=== PATIENT | male | born 1995 | race Caucasian/White ===

== ENCOUNTER → 2025-03-09 | Outpatient (CLI) | payer MEDICAID ==
[2025-03-09 18:51] LABS: BASO % 0.5 % (0.0-1.0); EOS # 0.1 10^3/uL (0.0-0.5); EOS % 2.2 % (0.0-3.0); HEMATOCRIT 44.8 % (42.0-52.0); HEMOGLOBIN 14.7 g/dl (13.5-17.5); LYMPH # 1.9 10^3/uL (1.5-5.0); LYMPH % 31.2 % (24.0-44.0); MEAN CORPUSCULAR HEMOGLOBIN 28.7 pg (27.0-33.0); MEAN CORPUSCULAR HGB CONC 32.8 g/dl (32.0-36.5); MEAN CORPUSCULAR VOLUME 87.5 fl (80.0-96.0); MONO # 0.5 10^3/uL (0.0-0.8); MONO % 8.3 % (2.0-8.0); NEUTROPHILS # 3.5 10^3/uL (1.5-8.5); NEUTROPHILS % 57.5 % (36.0-66.0); PLATELET COUNT, AUTOMATED 211 10^3/uL (150-450); RED BLOOD COUNT 5.12 10^6/uL (4.30-6.10)
[2025-03-09 19:08] LABS: ALBUMIN 4.1 G/DL (3.2-5.2); ALKALINE PHOSPHATASE 85 U/L (40-129); ALT/SGPT 37 U/L (7.0-40); AST/SGOT 38 U/L (<34); BILIRUBIN,TOTAL 0.3 MG/DL (0.3-1.2); BLOOD UREA NITROGEN 17 MG/DL (9-23); CALCIUM LEVEL 8.9 MG/DL (8.5-10.1); CARBON DIOXIDE LEVEL 29 MMOL/L (20-31); CHLORIDE LEVEL 104 MMOL/L (98-107); CREATININE FOR GFR 0.88 MG/DL (0.70-1.30); GLOMERULAR FILTRATION RATE > 90.0 (>60); GLUCOSE, FASTING 86 MG/DL (60-100); POTASSIUM SERUM 4.3 MMOL/L (3.5-5.1); SODIUM LEVEL 140 MMOL/L (136-145)
[2025-03-09 19:20] LABS: HEPATITIS B SURFACE ANTIGEN NEGATIVE (NEGATIVE)
[2025-03-09 19:41] LABS: HEPATITIS B CORE ANTIBODY IGM NEGATIVE (NEGATIVE)
[2025-03-09 19:51] LABS: HEPATITIS C VIRUS ABY INDEX > 11.00 INDEX (<0.8)
[2025-03-13 00:38] LABS: HCV RNA QUANTITATION <15 NOT DETECTED IU/mL (NOT DETECTED); HCV RNA log10 <1.18 NOT DETECTED Log IU/mL (NOT DETECTED)
== END ==
LOC: M WUC 12:44
DX: Z00.8 Encounter for other general examination (principal)

== ENCOUNTER 2025-06-13 11:50 | Inpatient (IN) | payer MEDICAID, OTHER ==
[~2025-06-13] VITALS: Ht 195.6 cm; Wt 114.5 kg
[2025-06-13] MEDS ORDERED: MM S100C PO (12:06)
[2025-06-13] MEDS ORDERED: PYRI25TA2 PO (12:06)
[2025-06-13] MEDS ORDERED: IBUP200T46 PO (12:06)
[2025-06-13] MEDS ORDERED: MIRT1TAB16 PO (12:06)
[2025-06-13] MEDS ORDERED: CETI5SOL3 PO (12:06)
[2025-06-13] MEDS ORDERED: GABA-284 PO (12:06)
[2025-06-13] MEDS ORDERED: APAP325T4 PO (12:06)
[2025-06-13] MEDS ORDERED: SENN8.6T28 PO (12:06)
[2025-06-13] MEDS ORDERED: NICO21DI37 TOP (12:06)
[2025-06-13] MEDS ORDERED: BANO25TA PO (12:06)
[2025-06-13] MEDS ORDERED: ONDA-282 PO (12:06)
[2025-06-13] MEDS ORDERED: NICO-257 PO (12:06)
[2025-06-13] MEDS ORDERED: LAMO200T3 PO (12:06)
[2025-06-13] MEDS ORDERED: HYDR-3363 PO (12:06)
[2025-06-13] MEDS ORDERED: METH10CO3 PO (12:07)
[2025-06-13 13:01] LABS: PLATELET COUNT, AUTOMATED 185 10^3/uL (150-450)
[2025-06-13 13:22] LABS: AMPHETAMINES LEVEL URINE NEGATIVE (NEGATIVE); BARBITURATES URINE NEGATIVE (NEGATIVE); BENZODIAZEPINES URINE NEGATIVE (NEGATIVE); CANNABINOIDS URINE NEGATIVE (NEGATIVE); COCAINE METABOLITE URINE NEGATIVE (NEGATIVE); METHADONE URINE POSITIVE (NEGATIVE); OPIATES URINE NEGATIVE (NEGATIVE); PHENCYCLIDINE URINE NEGATIVE (NEGATIVE)
[2025-06-13 13:24] LABS: ETHYL ALCOHOL (ETHANOL) < 0.003 % (0.000-0.010)
[2025-06-13 13:26] LABS: ALT/SGPT 53 U/L (7.0-40); AST/SGOT 52 U/L (<34); CALCIUM LEVEL 9.2 MG/DL (8.5-10.1); CARBON DIOXIDE LEVEL 28 MMOL/L (20-31); CHLORIDE LEVEL 104 MMOL/L (98-107); CREATININE FOR GFR 0.86 MG/DL (0.70-1.30); GLOMERULAR FILTRATION RATE > 90.0 (>60); POTASSIUM SERUM 4.5 MMOL/L (3.5-5.1); SALICYLATE LEVEL < 3.0 MG/DL (<30); SODIUM LEVEL 142 MMOL/L (136-145)
[2025-06-13] MEDS ORDERED: ACETAMINOPHEN 325 MG TAB PO PRN (14:25)
[2025-06-13] MEDS ORDERED: MAALOX 30 ML SUSP *UDC PO PRN (14:25)
[2025-06-13] MEDS ORDERED: OLANZapine 5 MG TAB PO PRN (14:25)
[2025-06-13] MEDS ORDERED: MOM 30 ML SUSPENSION UDC PO PRN (14:25)
[2025-06-13] MEDS ORDERED: IBUPROFEN 400 MG TAB PO PRN (14:25)
[2025-06-13] MEDS ORDERED: HALOPERIDOL 5 MG TAB PO PRN (14:25)
[2025-06-13 15:07] VITALS: BP 124/71; TEMP 97.5; O2SAT 96
[2025-06-13] MEDS: NICOTINE 14 MG/24 HR TRANSDERMAL TD SCH (16:33)
[2025-06-14 06:28] VITALS: BP 146/84; TEMP 96.9; O2SAT 99
[2025-06-14] MEDS ORDERED: IBUP80TA PO (10:17)
[2025-06-14] MEDS ORDERED: LAMI25TA PO (10:17)
[2025-06-14] MEDS ORDERED: GABA-1490 PO (10:17)
[2025-06-14] MEDS ORDERED: CETI-24 PO (10:17)
[2025-06-14] MEDS ORDERED: MIRT-84 PO (10:17)
[2025-06-14] MEDS ORDERED: HOME MED LIST COMPLETE! XX SCH (10:20)
[2025-06-14] MEDS: ESCITALOPRAM OXALATE 10 MG TABLET PO SCH (12:08)
[2025-06-14] MEDS: GABAPENTIN 400 MG CAP PO SCH (12:13)
[2025-06-14] MEDS: METHADONE 10 MG TAB PO SCH (12:16)
[2025-06-14 16:01] VITALS: BP 134/85; TEMP 97.1; O2SAT 95
[2025-06-15 06:20] VITALS: BP 155/65; TEMP 97.4; O2SAT 96
[2025-06-15] MEDS: LORazepam 1 MG TAB PO PRN (11:57)
[2025-06-15 15:38] VITALS: BP 101/51; TEMP 98.1; O2SAT 95
[2025-06-15 15:51] VITALS: BP 124/69
[2025-06-15] MEDS: traZODone 50 MG TAB PO PRN (20:04)
[2025-06-15 20:05] VITALS: BP 124/69
[2025-06-16 06:26] VITALS: BP 141/66; TEMP 98.2; O2SAT 96
[2025-06-16] MEDS ORDERED: GABA-284 PO (08:48)
[2025-06-16] MEDS ORDERED: CLONI1TA PO (08:48)
[2025-06-16] MEDS ORDERED: LEXA1TAB PO (08:48)
== END 2025-06-16 10:05 | disposition home or self-care (01) | DRG 751 ==
LOC: M ED 11:50 → M ED INP 14:21 → M PSY 15:21
PROVIDERS: ADMIT Internal Medicine; ATTEND Internal Medicine
DX: F33.1 Major depressive disorder, recurrent, moderate (principal); F90.9 Attention-deficit hyperactivity disorder, unspecified type; F41.1 Generalized anxiety disorder; R45.851 Suicidal ideations; Z88.8 Allergy status to other drugs, medicaments and biological substances; Z79.899 Other long term (current) drug therapy; G47.00 Insomnia, unspecified; Z62.810 Personal history of physical and sexual abuse in childhood; F11.90 Opioid use, unspecified, uncomplicated; F15.90 Other stimulant use, unspecified, uncomplicated

== ENCOUNTER 2025-07-23 08:44 | Emergency (ER) | payer MEDICAID, OTHER ==
[~2025-07-23] VITALS: Ht 195.6 cm; Wt 114.3 kg
[~2025-07-23 08:44] MED LIST: APAP325T4 PO; BANO25TA PO; CETI-24 PO; CETI5SOL3 PO; CLONI1TA PO; GABA-1490 PO; GABA-284 PO; HYDR-3363 PO; IBUP200T46 PO; IBUP80TA PO; LAMI25TA PO; LAMO200T3 PO; LEXA1TAB PO; METH10CO3 PO; MIRT-84 PO; MIRT1TAB16 PO; MM S100C PO; NICO-257 PO; NICO21DI37 TOP; ONDA-282 PO; PYRI25TA2 PO; SENN8.6T28 PO
[2025-07-23] MEDS ORDERED: INVE156I (08:55)
[2025-07-23] MEDS: LIDOCAINE W/EPINEPHrine 1% 20 ML VIAL SC ONE (10:00)
[2025-07-23] MEDS ORDERED: DOXY-441 PO (10:33)
[2025-07-23] MEDS: DOXYCYCLINE HYCLATE 100 MG TABLET PO ONE (10:36)
[2025-07-23 10:40] VITALS: BP 122/71; TEMP 98.1; O2SAT 98
== END 2025-07-23 10:41 | disposition home or self-care (01) ==
LOC: M ED 08:44
DX: L02.412 Cutaneous abscess of left axilla (principal); Z79.2 Long term (current) use of antibiotics; Z79.1 Long term (current) use of non-steroidal anti-inflammatories (NSAID); Z79.899 Other long term (current) drug therapy; Z88.1 Allergy status to other antibiotic agents; Z88.8 Allergy status to other drugs, medicaments and biological substances

== ENCOUNTER 2025-08-13 13:50 | Emergency (ER) | payer OTHER ==
[~2025-08-13] VITALS: Ht 195.6 cm; Wt 114.6 kg
[~2025-08-13 13:50] MED LIST changes: +DOXY-441 PO; +INVE156I
[2025-08-13 13:53] VITALS: BP 136/83; TEMP 97.5; O2SAT 97
== END 2025-08-13 18:25 | disposition home or self-care (01) ==
LOC: M ED 13:50
DX: S97.112A Crushing injury of left great toe, initial encounter (principal); W20.8XXA Other cause of strike by thrown, projected or falling object, initial encounter; Y92.89 Other specified places as the place of occurrence of the external cause; Y93.89 Activity, other specified; Y99.0 Civilian activity done for income or pay; Z79.899 Other long term (current) drug therapy; Z79.1 Long term (current) use of non-steroidal anti-inflammatories (NSAID); Z88.8 Allergy status to other drugs, medicaments and biological substances

== ENCOUNTER → 2025-08-24 | Outpatient (CLI) | payer OTHER ==
[2025-08-24 13:23] LABS: PLATELET COUNT, AUTOMATED 223 10^3/uL (150-450)
[2025-08-24 13:31] LABS: ALT/SGPT 29 U/L (7.0-40); AST/SGOT 33 U/L (<34); CALCIUM LEVEL 9.5 MG/DL (8.5-10.1); CARBON DIOXIDE LEVEL 29 MMOL/L (20-31); CHLORIDE LEVEL 103 MMOL/L (98-107); CREATININE FOR GFR 0.86 MG/DL (0.70-1.30); GLOMERULAR FILTRATION RATE > 90.0 (>60); POTASSIUM SERUM 4.3 MMOL/L (3.5-5.1); SODIUM LEVEL 139 MMOL/L (136-145)
[2025-08-24 14:03] LABS: HIV 1&2 SCREEN NEGATIVE (NEGATIVE)
[2025-08-24 14:27] LABS: HEPATITIS C VIRUS ABY INDEX > 11.00 INDEX (<0.8)
[2025-08-24 14:36] LABS: GC DNA AMPLIFICATION NEGATIVE (NEGATIVE)
[2025-08-25 14:11] LABS: HCV RNA QUANTITATION <15 NOT DETECTED IU/mL (NOT DETECTED)
[2025-08-25 22:28] LABS: HCV RNA log10 <1.18 NOT DETECTED Log IU/mL (NOT DETECTED)
== END ==
LOC: M WUC 09:13
PROVIDERS: ATTEND Family Medicine
DX: F11.20 Opioid dependence, uncomplicated (principal)